=== PATIENT | male | born 2000 | race Two or more races ===

== ENCOUNTER 2020-06-09 17:30 | Emergency (ER) | payer OTHER ==
[~2020-06-09] VITALS: Ht 172.7 cm; Wt 99.8 kg
[2020-06-09] MEDS ORDERED: AMOX500C2 PO (17:39)
[2020-06-09 17:40] VITALS: BP 135/81
[2020-06-09] MEDS ORDERED: OFLO5DRO5 RIGHT EAR (18:12)
== END 2020-06-09 18:18 | disposition home or self-care (01) ==
LOC: ER 17:37 → EDBD 17:37 → ER 18:18
DX: H60.91 Unspecified otitis externa, right ear (principal); Z79.899 Other long term (current) drug therapy

== ENCOUNTER 2021-08-20 18:55 | Emergency (ER) | payer OTHER ==
[~2021-08-20] VITALS: Ht 172.7 cm; Wt 86.2 kg
[~2021-08-20 18:55] MED LIST: AMOX500C2 PO; OFLO5DRO5 RIGHT EAR
--- NOTE | 2021-08-20 20:15 | NUR ---
BIBS C/O LEFT TESTICULAR PAIN X1 DAY UNRELIEVED BY ADVIL. PT A/O X 4, RR EVEN AND UNLABORED NO SOB NOTED, PT TAKEN ER BED 16
[2021-08-20 20:26] VITALS: BP 135/70
--- NOTE | 2021-08-20 20:26 | NUR ---
US AT BEDSIDE
--- NOTE | 2021-08-20 20:46 | NUR ---
URINE COLLECTED AND SENT TO LAB
[2021-08-20 21:54] LABS: BILIRUBIN,URINE NEGATIVE (NEGATIVE); COLOR,URINE YELLOW (YELLOW); LEUKOCYTE ESTERASE ,URINE NEGATIVE (NEGATIVE); NITRITE, URINE NEGATIVE (NEGATIVE); PROTEIN,URINE NEGATIVE (NEGATIVE); UGLUCOSE NEGATIVE (NEGATIVE); UROBILINOGEN,URINE 0.2 EU/dL (0.2)
[2021-08-20] MEDS ORDERED: CEFTRIAXONE 500 MG VIAL ONE (22:24)
[2021-08-20] MEDS ORDERED: LIDOCAINE /MPF 1% VIAL 5 ML VIAL ONE (22:25)
[2021-08-20] MEDS ORDERED: DOXY-326 PO (22:26)
[2021-08-20] MEDS ORDERED: CEFTRIAXONE 500 MG VIAL IM ONE (22:30)
== END 2021-08-20 22:40 | disposition home or self-care (01) ==
LOC: ER 19:00
DX: N50.812 Left testicular pain (principal); Z79.899 Other long term (current) drug therapy
CPT/HCPCS: 76870; 81003; 87491; 87591; 96372; 99284; J0696; J3490